=== PATIENT | male | born 1975 | race Hispanic/Latino ===

== ENCOUNTER 2017-08-21 10:06 | Emergency (ER) | payer OTHER ==
[~2017-08-21] VITALS: Ht 167.6 cm; Wt 68.0 kg
== END 2017-08-21 11:00 | disposition home or self-care (01) ==
LOC: ER 10:06
DX: F41.1 Generalized anxiety disorder (principal); T43.615A Adverse effect of caffeine, initial encounter
CPT/HCPCS: 93005; 99282

== ENCOUNTER 2017-10-05 23:00 | Emergency (ER) | payer OTHER ==
[~2017-10-05] VITALS: Ht 167.6 cm; Wt 68.0 kg
--- OUTSIDE RECORDS SUMMARY | 2017-10-05 23:02 | XMS REPORT ---
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 Jamie Bauman MD Open angle with borderline findings, low risk Screening examination for other specified viral diseases V73.89 Active Jamie Bauman MD Screening examination for other specified viral diseases Myopia - OU 367.1 Active Forrest Olivares OD Myopia Regular astigmatism, 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.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 Forrest Olivares OD Regular astigmatism HIV INFECTION 042 Active Saritha Upright DDS Human immunodeficiency virus [HIV] disease EXAMINATION, DENTAL V72.2 Inactive Meron Wen Special investigations and examinations - Dental examination EXAMINATION, DENTAL ICD-V72.2 Inactive Meron Wen EXAMINATION, DENTAL V72.2 Inactive Saritha Upright DDS Special investigations and examinations - Dental examination EXAMINATION, DENTAL ICD-V72.2 Inactive Meron Wen Medication List Medication Instructions Start Date Stop Date Generic Name NDC Status Provider Patient Instruction DESCOVY TABLET EMTRICITABINE-TENOFOVIR AF TABS 65807993581 Active Forrest Olivares OD Active TIVICAY TABLET DOLUTEGRAVIR SODIUM TABS 74859885769 Active Forrest Olivares OD Active REYATAZ 300 MG ORAL CAPSULE 1 By Mouth Every Day with food 05/21 REYATAZ 300 MG ORAL CAPSULE Atazanavir Sulfate Inactive TRUVADA 200-300 MG ORAL TABLET TRUVADA 200-300 MG ORAL TABLET EMTRICITABINE-TENOFOVIR Inactive REYATAZ 300 MG ORAL CAPSULE 1 By Mouth Every Day with food 05/21 Atazanavir Sulfate 85719573255 No Longer Active Jamie Bauman MD Active TRUVADA 200-300 MG ORAL TABLET EMTRICITABINE- TENOFOVIR 10462192009 No Longer Active Jamie Bauman MD Active Diagnostic Results Date Name Value Unit Range Description Office Visit: Eye Exam - Hematology T-helper cells (CD4) count 366 uL Office Visit: Eye Exam - Serology HIV-1RNA, serum, by PCR, quantitative 96 {Copies}/mL Procedures Code Procedure Name Date Entry Date Standard Description CPT-03278 Dispensing Visit (Non-Billable) 13:24:45 [facility] CPT-60102 COMPUTERIZED OPHTHALMIC IMAGING OPTIC NERVE 13:24:45 CONTINUOUS DRYOUT OPERATOR HELPER CPT-32046 COMPUTERIZED OPHTHALMIC IMAGING OPTIC NERVE 11:40:48 CONTINUOUS DRYOUT OPERATOR HELPER CPT-55794 Est Patient Comprehensive Opt - 71209 11:40:48 [facility] CPT-44012 Est Patient Intermediate Opt - 48868 10:48:22 CONTINUOUS DRYOUT OPERATOR HELPER 2016 CPT-87511 Oph US Dx Crnl Pachymetry UNI/BI 16:48:41 CONTINUOUS DRYOUT OPERATOR HELPER CPT-77556 COMPUTERIZED OPHTHALMIC IMAGING OPTIC NERVE 16:48:41 CONTINUOUS DRYOUT OPERATOR HELPER CPT-15026 Est Patient Intermediate Opt - 77345 16:48:41 CONTINUOUS DRYOUT OPERATOR HELPER 2015 CPT-28732 Dispensing Visit (UNLIVSTED OPHTHALMOLOGICAL SERVICE/PROCEDURE) 13:45:57 CONTINUOUS DRYOUT OPERATOR HELPER [id number]-[id number] New Patient Intermediate Opt - 90045 15:46:21 CONTINUOUS DRYOUT OPERATOR HELPER 2015
--- OUTSIDE RECORDS SUMMARY | 2017-10-05 23:02 | XMS REPORT ---
Author Author [facility] Address Unknown Phone Unavailable Care Team Providers Care Electronic Sales And Service Technician Name Role Phone Unavailable Unavailable Problems This patient has no known problems. Allergies, Adverse Reactions, Alerts This patient has no known allergies or adverse reactions. Medications This patient has no known medications. Encounters Start Date/Time End Date/Time Encounter Type Admission Type Attending [facility] Care Department Encounter ID 2017-10-08 00:00:00 2017-10-08 00:00:00 Outpatient [facility] [id number] 2017-06-24 14:52:49 2017-06-24 14:52:49 Emergency [facility] [id number] 2017-06-24 14:19:00 2017-06-24 14:19:00 Emergency [facility] [id number] 2017-06-18 10:36:07 2017-06-18 10:36:07 Outpatient [facility] [id number]
--- OUTSIDE RECORDS SUMMARY | 2017-10-05 23:02 | XMS REPORT | Continuity of Care Document ---
Author Author [facility] Organization [facility] Address [address] [place] [address] Phone Unavailable Care Team Providers Care Doll Wig Maker Rooted Hair Name Role Phone NONSTAFF PCP Unavailable Advance Directives No advance directive information available. Problems No problem information available. Medications No medication information available. Social History Smoking Status Start Date Stop Date Never Smoker Hospital Discharge Instructions No hospital discharge instruction information available. Plan of Care Discharge Date 08/21/17 11:00am Disposition HOME, SELF-CARE Condition at Discharge Stable Instructions/Education Provided Generalized Anxiety Disorder Forms Provided Work/School Excuse Prescriptions See Medication Section Additional Instructions/Education follow up with pcp return to ED for worsening of symptoms Functional Status No functional status information available. Allergies, Adverse Reactions, Alerts No known allergies. Immunizations No immunization information available. Vital Signs Acute Vital Signs Vital Response Date/Time Height 5 ft 6 in 08/21/2017 10:10am Weight 150 lb 08/21/2017 10:10am Body Mass Index 24.2 kg/m^2 08/21/2017 10:10am Results No relevant diagnostic test, laboratory data and/or discharge summary information available. Procedures No procedure information available. Encounters Encounter Location Arrival/Admit Date Discharge/Depart Date Attending Provider Departed Emergency Room [facility] 08/21/17 10:06am 08/21 11:00am HOMA KIRAN MD
[2017-10-05 23:11] VITALS: BP 140/61
== END 2017-10-05 23:13 | disposition home or self-care (01) ==
LOC: ER 23:00
DX: S10.11XA Abrasion of throat, initial encounter (principal); R09.89 Other specified symptoms and signs involving the circulatory and respiratory systems
CPT/HCPCS: 99282